=== PATIENT | male | born 1955 | race Caucasian/White ===

== ENCOUNTER → 2016-07-09 | Outpatient (CLI) | payer OTHER ==
[~2016-07-09] MED LIST: AMARYL PO; ATENOL/CHLOR; ATENOLOL PO; ATENOLOL-CHLORT1 TA3 PO; CELEBREX PO; DARVOCET-N 1001 TAB PO; FLEXERIL PO; FLOMAX0.4 M1 PO; FLOMAX0.4 MG PO; GABAPENTIN300 MG PO; GLYCOLAX; HYDROCODON-ACE1 EAC5 PO; JANUVIA100 MG PO; KETOPROFEN PO; MOBIC PO; NORFLEX100 MG PO; PROSCAR5 MG PO; REQUIP1 MG PO; SINGULAIR PO; TRICOR PO
--- NOTE | ~2016-07-09 | CT137 ---
[facility] A Service [facility] RADIOLOGY TEXT RESULTS PATIENT: ETIENNE RYDER JR LOCATION: [facility] : 51 UNIT #: [id number] AGE: [address]: Bret Curran MD SEX: M ORDER DR: [id number] [place] [id number] O MR#: [id number] Acc #: [id number] NAME: ETIENNE RYDER : 1955 SEX: M STUDY DATE/TIME: 07/09/2016 8:26 UNIT: [facility] ROOM: STUDY DESCRIPTION: CT Lung Screening annual Attending Physician: Bret Curran M.D. Referring Physician: Bret Curran M.D. Ordering Physician: Bret Curran M.D. Primary Care Physician: Bret Curran M.D. MEDICAL IMAGING REPORT This report is preliminary unless electronic signature is present. EXAM CT of the chest without contrast, lung cancer screening INDICATIONS [id number] total smoking history. Current smoker. TECHNIQUE CT of the chest was performed without contrast using the low-dose lung cancer screening protocol. Coronal and sagittal reformatted images were obtained. This CT exam was performed with one or more of the following radiation dose reduction techniques: automatic exposure control, adjustment of mA and/or kV according to patient size, and iterative reconstruction. COMPARISON STUDIES Comparison is made with 06/06/2015. FINDINGS Emphysema. There is no suspicious pulmonary nodule. No lymphadenopathy. Trace pericardial fluid. Coronary artery calcification. Limited imaging of the upper abdomen demonstrates stable hepatic cysts. The bone windows are unremarkable. IMPRESSION No suspicious pulmonary nodule. ACR Lung RADS category 1. Follow-up annual low-dose lung cancer screening chest CT in 1 year. Dictated by... Isreal Escamilla M.D. [facility] A [facility] RADIOLOGY TEXT RESULTS PATIENT: ETIENNE RYDER JR LOCATION: [facility] : 51 UNIT #: [id number] AGE: [address]: Bret Curran MD SEX: M ORDER DR: THIS IS AN ELECTRONICALLY VERIFIED REPORT Isreal Escamilla M.D. at 07/10/2016 7:45 AM ARS/pcl TD: 07/09/2016 20:39 JOB #: [id number] MEDICAL IMAGING REPORT Page 1 of 1
== END | disposition home or self-care (01) ==
LOC: SCT 07:59
DX: F17.210 Nicotine dependence, cigarettes, uncomplicated (principal)
CPT/HCPCS: G0297